=== PATIENT | male | born 1980 | race Caucasian/White ===

== ENCOUNTER 2016-12-20 12:31 | Observation (INO) | payer SELFPAY ==
--- NOTE | ~2016-12-20 | OP ---
Record Of Operation [facility] [address] [place]. [address] NAME: DANYEL HERNANDEZ : 78 STATUS : ADM Rosario PAT#: [id number] AGE: 36 ADM/REG DATE : 12/20/16 MR#: [id number] REPORT SERV DATE: 12/21/16 DICTATED BY: PORTER LANCASTER DATE: 12/20/16 REPORT STATUS : Draft TRANSCRIBED BY: MODL DATE: 12/20/16 DATE OF PROCEDURE: 12/20/2016 PREOPERATIVE DIAGNOSIS: Acute appendicitis. POSTOPERATIVE DIAGNOSIS: Acute appendicitis. PROCEDURE: Laparoscopic appendectomy. SURGEONS: Porter Lancaster M.D. GRAIN INSPECTOR: Eligio Beck. ANESTHESIA: General. ESTIMATED BLOOD LOSS: 25 mL. SPECIMEN: Appendix. IV FLUIDS: 1000 mL. COMPLICATION: None. BRIEF HISTORY: Mr. Hernandez is a 36-year-old man, who presented with acute appendicitis. Laparoscopic appendectomy was recommended. The procedure with the risks including bleeding, infection, injury to surrounding structures, requiring open operation, staple line leak requiring reoperation, or hernia formation were all explained. He agreed to proceed. DESCRIPTION OF PROCEDURE: After consent was obtained, he was taken to the operating room and placed in supine position on the operating table. General endotracheal anesthesia was administered. The abdomen was then clipped and prepped and draped in normal sterile fashion. Perioperative antibiotics were administered. SCDs were placed. Time-out was performed. We began at the umbilicus, injected local anesthesia in the infraumbilical area. A smiley- face incision was created. Electrocautery was then used to dissect down to the fascia. The fascia was doubly grasped, elevated, and incised in the midline. We inserted a 12-mm trocar. The abdomen was insufflated to 15 mmHg of CO2 gas. The scope was inserted. There was no evidence of injury upon placement of the trocar. After infiltration of local anesthesia and under direct visualization, a 5-mm trocar was placed in the right upper quadrant in the suprapubic position. He was then positioned in the Trendelenburg position with left tilt. We identified the appendix. It was inflamed at the tip, but there was no purulence or rupture. We elevated the appendix, created a window at the base, and stapled the base away from the cecum using an Endo-NICOLE stapler with a tissue load. We then changed to a vascular Record Of Operation [facility] [address] [place]. [address] NAME: DANYEL HERNANDEZ : 78 STATUS : ADM Rosario PAT#: [id number] AGE: 36 ADM/REG DATE : 12/20/16 MR#: [id number] REPORT SERV DATE: 12/21/16 DICTATED BY: PORTER LANCASTER DATE: 12/20/16 REPORT STATUS : Draft TRANSCRIBED BY: NORMA DATE: 12/20/16 load and stapled the mesoappendix. It was placed within an endobag and was removed through the umbilicus. He had a small amount of oozing coming from the staple line, which had stopped by the time we removed the appendix. It was irrigated and suctioned. There was a small mesenteric hematoma, which was stable and did not continue to expand once we had watched this for approximately five minutes and the area was completely aspirated. We removed all trocars under direct visualization. There was no evidence of bleeding. The abdomen was desufflated. The fascia at the umbilicus was closed using a 0 Vicryl figure-of- eight suture. All skin incisions were irrigated with sterile saline and closed using a 4-0 Monocryl subcuticular stitch. The abdomen was cleaned and sterile dressings were applied. The patient tolerated the procedure well, was extubated in the operating room and sent to the recovery room in stable condition. ATTILA/NORMA Porter Lancaster MD / [id number] CC: Porter Lancaster MD
--- NOTE | ~2016-12-20 | HP ---
History And Physical [place] [id number] [facility] [place]. [address] NAME: DANYEL MALONEY : 78 STATUS : [facility]#: [id number] AGE: 36 ADM/REG DATE : 12/20/16 MR#: [id number] REPORT SERV DATE: 12/20/16 DICTATED BY: PORTER LANCASTER DATE: 12/20/16 REPORT STATUS : Draft TRANSCRIBED BY: MODL DATE: 12/20/16 DATE OF ADMISSION: 12/20/2016 CHIEF COMPLAINT: Right lower quadrant pain. HISTORY OF PRESENT ILLNESS: Mr. Maloney is a 36-year-old man, who presents with a 24-hour history of right lower quadrant abdominal pain. The pain began as a pressure sensation in the mid to the right lower quadrant, which progressed to focal right lower quadrant abdominal pain. He had a bowel movement this morning, which relieved the pain for short period of time, but then it returned. He denies any fever or blood per rectum. He has never had pain of this nature before. He has no family history of inflammatory bowel disease, but his father was diagnosed with colon cancer 10 years ago. He last ate at 9 o'clock. PAST MEDICAL HISTORY: Includes reflux. PAST SURGICAL HISTORY: None. MEDICATIONS: Pepto-Bismol, Tums, Tagamet, Colace, Aleve, and melatonin. ALLERGIES: NO KNOWN DRUG ALLERGIES. FAMILY HISTORY: His father had colon cancer. There is no inflammatory bowel disease in the family. SOCIAL HISTORY: He smokes a pack a day for the last 20 years. He denies alcohol or drugs. REVIEW OF SYSTEMS: Comprehensive 12-point review of systems was obtained and is negative except for that listed in history of present illness. Of note, he denies any sick contacts, recent travel outside the country, or unusual foods recently. PHYSICAL EXAMINATION: VITAL SIGNS: His heart rate 100, blood pressure 145/81, sat 96%, temperature 97.7. GENERAL: He is ill appearing, but no acute distress. Alert and oriented x3. HEENT: Normocephalic, atraumatic. Pupils equal, round, and reactive to light. No scleral icterus. CHEST: Clear to auscultation bilaterally. Nonlabored breathing. CARDIOVASCULAR: Regular rate and rhythm. ABDOMEN: Soft. He has tender to palpation in the right lower quadrant, focal rebound tenderness. He has a positive Rovsing sign. EXTREMITIES: Both lower extremities are well perfused. No edema. LABORATORY VALUES: White blood cell count 12.7, hematocrit 47.2, platelets 174. Sodium 143, potassium 4.4, chloride 104, bicarb 29, BUN 10, creatinine 0.7, glucose 99. His ALT is 22, his AST is 67. UA is negative. CT scan was personally reviewed and shows evidence of acute History And Physical [address] [address] NAME: DANYEL MALONEY : 78 STATUS : [facility] PAT#: [id number] AGE: 36 ADM/REG DATE : 12/20/16 MR#: [id number] REPORT SERV DATE: 12/20/16 DICTATED BY: PORTER LANCASTER DATE: 12/20/16 REPORT STATUS : Draft TRANSCRIBED BY: NORMA DATE: 12/20/16 appendicitis with no rupture. ASSESSMENT AND PLAN: Mr. Maloney is a 36-year-old man with acute appendicitis. Plan will be to keep n.p.o., given IV fluids, and IV antibiotics. He will be taken to the operating room for laparoscopic appendectomy. The procedure with the risks including bleeding, infection, injury to surrounding structures, staple line leak requiring reoperation, hernia formation, or possibility of converting to open were all explained, he agreed to proceed. ATTILA/NORMA Porter Lancaster MD / [id number]
[2016-12-20 11:41] LABS: BASOPHILS 0.2 %; BASOPHILS ABSOLUTE 0.02 10/3/uL (0.0-0.16); EOSINOPHILS 0.9 %; EOSINOPHILS ABSOLUTE 0.12 10/3/uL (0.0-0.53); HEMATOCRIT 47.2 % (40.0-51.0); HEMOGLOBIN 15.9 g/dL (13.6-17.8); IMMATURE GRANULOCYTES 0.3 %; IMMATURE GRANULOCYTES ABSOLUTE 0.04 10/3/uL (0.0-0.11); LYMPHOCYTES 28.3 %; LYMPHOCYTES ABSOLUTE 3.59 10/3/uL (0.67-4.30); MANUAL DIFF NO %; MEAN CORPUS HGB CONC 33.7 g/dL (32.0-36.0); MEAN PLATELET VOLUME 11.9 fL (9.2-13.0); MONOCYTES 7.4 %; MONOCYTES ABSOLUTE 0.94 10/3/uL (0.21-1.20); NEUTROPHILS 62.9 %; NEUTROPHILS ABSOLUTE 7.96 10/3/uL (2.02-8.40); PLATELET COUNT 174 10/3/uL (150-400); RED CELL COUNT 5.49 10/6/uL (4.7-6.1); WHITE BLOOD CELLS 12.7 10/3/uL (4.5-10.5)
[2016-12-20 11:54] LABS: ASCORBIC ACID (UR NOT ORDER) NEG (NEG); BILIRUBIN, URINE NEGATIVE (NEG); ER URINALYSIS TAT 0 Hrs 20 Mins; KETONE, URINE NEGATIVE (NEG); LEUKOCYTE ESTERASE(NOT OR NEG (NEG); NITRITE (URINE) NEG (NEG); WBC (NOT ORDERED) (RFLEX) < 1 (0-5)
[2016-12-20 11:57] LABS: A/G RATIO 0.8 (0.7-1.9); ALBUMIN 3.7 G/DL (3.5-5.0); ALKALINE PHOSPHATASE 100 U/L (45-117); BUN (BLOOD UREA NITROGEN) 10 MG/DL (6-23); CALCIUM, SERUM 9.1 MG/DL (8.5-10.4); CHLORIDE, SERUM 104 MMOL/L (96-112); CO2 (CARBON DIOXIDE) 29 MMOL/L (24-34); CREATININE 0.74 MG/DL (0.70-1.30); GFR AFRICAN AMERICAN 137 ML/MIN (>=60); GFR NON AFRICAN AMERICAN 118 ML/MIN (>=60); GLOBULIN 4.4 G/DL (2.5-4.1); GLUCOSE, SERUM 99 MG/DL (60-99); POTASSIUM, SERUM 4.4 MMOL/L (3.5-5.3); SGOT(AST) 67 U/L (5-40); SGPT(ALT) 221 U/L (5-65); SODIUM, SERUM 143 MMOL/L (135-148); TOTAL PROTEIN 8.1 G/DL (6.0-8.5)
[2016-12-20] MEDS ORDERED: OTC MELATONIN PO (14:19)
[2016-12-20] MEDS ORDERED: ALEVE220 MG PO (14:20)
[2016-12-20] MEDS ORDERED: PEPTO BISMOL LIQ1 ML PO (14:20)
[2016-12-20] MEDS ORDERED: TUMSROLL PO (14:21)
[2016-12-20] MEDS ORDERED: DSS PO (14:21)
[2016-12-20] MEDS ORDERED: CIMETIDINE300 MG PO (14:21)
[2016-12-21] MEDS ORDERED: PCET PO (12:42)
== END 2016-12-21 15:32 | disposition home or self-care (01) ==
LOC: ER 12:31 → 4SO 19:52
PROVIDERS: Nurse Practitioner Acute Care
PROC: 0DTJ4ZZ Resection of Appendix, Percutaneous Endoscopic Approach (ICD-10-PCS; principal; 2016-12-21)
DX: K35.80 Unspecified acute appendicitis (principal); K21.9 Gastro-esophageal reflux disease without esophagitis; F17.210 Nicotine dependence, cigarettes, uncomplicated; Z80.0 Family history of malignant neoplasm of digestive organs; Z79.899 Other long term (current) drug therapy
CPT/HCPCS: 74176; 80053; 81001; 83690; 85025; 88304; 96372; 96374; 96375; 96376; 99285; A9270-GY; G0378; J0694; J1170; J2250; J2270; J2405; J2710; J3010